=== PATIENT | male | born 1980 | race Caucasian/White ===

== ENCOUNTER 2017-07-19 22:49 | Emergency (ER) | payer OTHER ==
[2017-07-20] MEDS ORDERED: oxyCODONE/Acetamin 5/325 MG* TAB PO ONE ×2 (00:51→01:16)
--- NOTE | 2017-07-20 00:55 | ED ---
Upper Extremity Pain - HPI Summary HPI Summary: 37M presents with right wrist injury. He broke his wrist last week. He states he was suppose to follow up with ortho but never did. He states had a in this area so came up from [place] and will be staying for another week. He states that has been taking naproxen and ibuprofen without relief. He states he is right handed and that he tried to turn a jar with his right hand and felt a pop. He states has numbness just in 5th digit. He states has pain in ulnar aspect of right wrist. He is staying in [place]. - History of Current Complaint Chief Complaint: EDExtremityUpper Stated Complaint: LEFT WRIST INJURY Time Seen by Provider: 07/20/17 00:22 - Allergies/Home Medications Allergies/Adverse Reactions: Allergies Allergy/AdvReac Type Severity Reaction Status Date / Time Ciprofloxacin [From Cipro] Allergy Hives Verified 07/19/17 22:52 PMH/Surg Hx/FS Hx/Imm Hx Endocrine/Hematology History: Denies: Hx Anticoagulant Therapy Neurological History: Reports: Hx Seizures Infectious Disease History: No Infectious Disease History: Denies: Traveled Outside the [place] in Last 30 Days - Family History Known Family History: Positive: Hypertension - Social History Alcohol Use: None Substance Use Type: Reports: None Smoking Status (MU): Never Smoked Tobacco Review of Systems Negative: Fever Negative: Chest Pain Negative: Shortness Of Breath Positive: Myalgia - right wrist All Other Systems Reviewed And Are Negative: Yes Physical Exam Triage Information Reviewed: Yes Vital Signs On Initial Exam: Initial Vitals Temp Pulse Resp BP Pulse Ox 97 F 78 16 136/90 95 07/19/17 22:53 07/19/17 22:53 07/19/17 22:53 07/19/17 22:53 07/19/17 22:53 Vital Signs Reviewed: Yes Appearance: Positive: Well-Appearing Skin: Positive: Warm, Dry Head/Face: Positive: Normal Head/Face Inspection Eyes: Positive: Normal, Conjunctiva Clear Respiratory/Lung Sounds: Positive: Clear to Auscultation, Breath Sounds Present Cardiovascular: Positive: Normal, RRR Musculoskeletal: Positive: Limited @ - right wrist, Edema Right - wrist, Other - good pulses, capillary refill<2 secs, tenderness over ulnar aspect of wrist right, neg snuff box tenderness. dec sensation just in 5th digit Neurological: Positive: Sensory/Motor Intact Psychiatric: Positive: Normal Diagnostics - Vital Signs Vital Signs Temp Pulse Resp BP Pulse Ox 07/19/17 22:53 97 F 78 16 136/90 95 - Laboratory Lab Statement: Any lab studies that have been ordered have been reviewed, and results considered in the medical decision making process. - Radiology wrist Xray Interpretation: Positive (See Comments) - ulnar styloid fracture Radiology Interpretation Completed By: ED Physician Course/Dx - Course Course Of Treatment: 37M presents with right wrist injury. He broke his wrist last week. He states he was suppose to follow up with ortho but never did. He states had a in this area so came up from [place] and will be staying for another week. He states that has been taking naproxen and ibuprofen without relief. He states he is right handed and that he tried to turn a jar with his right hand and felt a pop. He states has numbness just in 5th digit. He states has pain in ulnar aspect of right wrist. on exam has decreased sensation in 5th digit. tenderness ulnar aspect of wrist. has decreased sensation over 5th digit but does not follow ulnar nerve pattern. neg snuff box tenderness. xray read by me as ulnar styloid fracture. patient wants to keep brace that has on. will give pain medication. told to stop either naproxen or ibuprofen as are in same class of medication. patient understand and agrees with plan. - Diagnoses Differential Diagnosis/HQI/PQRI: Positive: Fracture (Closed), Strain, Sprain Provider Diagnoses: Right wrist fracture Discharge - Discharge Plan Condition: Good Disposition: HOME Prescriptions: oxyCODONE/Acetamin 5/325 MG* [Percocet 5/325 TAB*] 1 tab PO Q6H PRN #12 tab MDD 4 PRN Reason: Pain Patient Education Materials: Wrist Fracture in Adults (ED) Referrals: Daniele Solomon MD [Medical Doctor] - Additional Instructions: Keep brace on area Take Tylenol or ibuprofen every 6 hours as needed for pain, use narcotic for break through pain Apply ice, rest, elevate Follow up with ortho Return to ED if develop any new or worsening symptoms
[2017-07-20 01:52] VITALS: BP 135/87
--- NOTE | 2017-07-20 08:00 | RAD ---
INDICATION: Requisition reports "broke hand last week". Now has pain after opening a bottle. COMPARISON: None. TECHNIQUE: 3 views right wrist. REPORT: The visualized bones are properly aligned and well corticated. The joint spaces are normal.There is no fracture, dislocation or other focal osseous abnormality. IMPRESSION: Normal radiograph of the right wrist. If the patient's symptoms persist, follow-up imaging is recommended.
== END 2017-07-20 01:48 | disposition home or self-care (01) ==
LOC: ED 22:49
DX: S62.101A Fracture of unspecified carpal bone, right wrist, initial encounter for closed fracture (principal); X58.XXXA Exposure to other specified factors, initial encounter; Y93.9 Activity, unspecified; Y92.9 Unspecified place or not applicable
CPT/HCPCS: 99281; A9270-GY